=== PATIENT | female | born 1940 | race Caucasian/White ===

== ENCOUNTER 2019-09-11 13:14 | Emergency (ER) | payer MEDICARE, BC, SELFPAY ==
--- NOTE | 2019-09-11 13:24 | ED.URI ---
HPI - URI/Sore Throat General Chief Complaint: Upper Respiratory Infection Stated Complaint: Cough/Headache Time Seen by Provider: 09/11/19 13:39 Source: patient and RN notes reviewed Mode of arrival: ambulatory Limitations: no limitations History of Present Illness HPI Narrative: 79-year-old female with history of aortic stenosis presents with concern for cough, body aches fatigue, headache. Reports her daughter was diagnosed with influenza A several days ago. MD elicited complaint: cough Related Data Home Medications Medication Instructions Recorded Confirmed Orencia 09/11/19 amitriptyline 50 mg PO HS 09/11/19 09/11/19 atorvastatin 20 mg PO HS 09/11/19 09/11/19 biotin mcg PO 09/11/19 calcium carbonate-vitamin D3 1 cap PO BID 09/11/19 09/11/19 [Calcium 600 with Vitamin D3] celecoxib [Celebrex] 400 mg PO DAILY 09/11/19 09/11/19 coenzyme Q10 [Co Q-10] 400 mg PO DAILY 09/11/19 09/11/19 cyclosporine [Restasis] 1 drp OPHTHALMIC (EYE) Q12H 09/11/19 09/11/19 fexofenadine-pseudoephedrine 1 tablet PO QAM 09/11/19 09/11/19 [Bettina-D 24 Hour] folic acid 2 mg PO DAILY 09/11/19 09/11/19 gabapentin [Neurontin] 900 mg PO TID 09/11/19 09/11/19 levocarnitine [L-Carnitine] 500 mg PO ONCE 09/11/19 09/11/19 magnesium 09/11/19 methotrexate sodium 15 mg PO WEEKLY 09/11/19 09/11/19 metoprolol succinate 25 mg PO BID 09/11/19 09/11/19 omega 2-xcw-emt-fish oil [Fish Oil] 1 cap PO DAILY 09/11/19 09/11/19 vit C,Z-Mi-dmgnl-lutein-zeaxan 1 tablet PO BID 09/11/19 09/11/19 [PreserVision AREDS-2] Allergies Allergy/AdvReac Type Severity Reaction Status Date / Time poison curry extract Allergy Unknown Unknown Unverified 09/11/19 13:41 hydrocodone AdvReac Severe Other Verified 09/11/19 13:41 tramadol AdvReac Unknown Itching Verified 09/11/19 13:41 Review of Systems Review of Systems: Narrative: CONSTITUTIONAL: Denies malaise, chills, sweats, or fever. EYES: Denies visual changes, redness, or discharge. ENT: Reports rhinorrhea, congestion, sinus pain, otalgia and sore throat. CARDIOVASCULAR: Denies chest pain, palpitations, or edema. RESPIRATORY: Reports cough. Denies dyspnea. GASTROINTESTINAL: Denies abdominal pain, nausea, vomiting, diarrhea SKIN: Denies rash or itching. MUSCULOSKELETAL: Denies myalgia. NEUROLOGIC: Denies headache. All systems reviewed & are unremarkable except as noted in HPI and below PMFSH Comments At time of signature, agree with nursing past medical, surgical, social and family history. There is no relevant family history pertinent to the presenting complaint Exam Narrative: Exam Narrative: GENERAL: Well-appearing, well-nourished, and in no acute distress. HEAD: Normocephalic EYES: PERRLA, conjunctivae clear ENT: Nares clear, turbinates erythematous, clear discharge. Mucous membranes moist. TM pearly cohen with dull light reflex bilaterally; no tragal tenderness. Oropharynx not erythematous without lesions. Tonsils not enlarged and without exudate, no drooling, no hoarseness, no trismus. NECK: Supple. No lymphadenopathy CHEST: Clear to auscultation, breath sounds equal. No wheezing, rhonchi, rales, or stridor. No respiratory distress, speaks in full sentences. HEART: Regular rate and rhythm. No murmur heard. Normal peripheral pulses. SKIN: Warm, dry, no rash. NEURO: Alert and oriented x3. PSYCH: Normal mood and affect Course Course Emergency Course: Patient is aware of diagnosis, understands and agrees to treatment plan. Anticipatory guidance given. Patient agrees to follow-up as directed and is aware of reasons to seek care at the emergency department. Portions of this record may have been created with voice recognition software Vital Signs Vital signs: Vital Signs Temperature 98.8 F 09/11/19 13:33 Pulse Rate 69 09/11/19 13:33 Respiratory Rate 16 09/11/19 13:33 Blood Pressure 104/77 09/11/19 13:33 Pulse Oximetry 99 09/11/19 13:33 Temperature 98.8 F 09/11/19 13:33 Pulse Rate 69 09/11
[2019-09-11 13:33] VITALS: BP 104/77; PULSE 69; RESP 16; TEMP 37.1; O2SAT 99
== END 2019-09-11 13:57 | disposition home or self-care (01) ==
PROVIDERS: Emergency Provider Nurse Practitioner
DX: Z20.828 Contact with and (suspected) exposure to other viral communicable diseases (principal); R05 Cough
CPT/HCPCS: 87804; 99213; G0463

== ENCOUNTER 2021-11-16 13:09 | Outpatient (CLI) | payer MEDICARE, BC, SELFPAY ==
--- NOTE | 2021-11-16 13:26 | ECG_ITS ---
Measurements Intervals [place] Rate: 75 P: 45 SC: 157 QRS: -6 QRSD: 101 T: 64 QT: 390 QTc: 436 Interpretive Statements SINUS RHYTHM BORDERLINE LEFTWARD AXIS NO PREVIOUS ECG AVAILABLE FOR COMPARISON Electronically Signed On 11-16-2021 15:04:03 CDT by Nick Quijano M.D.
== END 2021-11-16 13:10 | disposition home or self-care (01) ==
PROVIDERS: Visit Provider Podiatrist Foot & Ankle Surgery
DX: R03.0 Elevated blood-pressure reading, without diagnosis of hypertension (principal)
CPT/HCPCS: 93005

== ENCOUNTER 2022-03-06 17:35 | Emergency (ER) | payer MEDICARE, BC, SELFPAY ==
--- NOTE | ~2022-03-06 | XR_ITS ---
EXAM: [id number] DATE: 03/06/2022 18:16 HISTORY: FALL, WITH BRUISING TO RT SIDE LOWER RIB . COMPARISON: None available. FINDINGS: Valve replacement. Aortic arch calcification and ectasia. Senescent changes in the lungs. Normal mineralization. Mildly displaced fractures of the right lateral/posterolateral seventh through ninth ribs. Nondisplaced mildly angulated fractures of the anterior fourth and fifth ribs. No lytic or blastic lesion. Joint spaces are maintained. No erosion or periosteal change. Soft tissues within normal limits. IMPRESSION: Multiple right rib fractures, described above. Reviewed, dictated and finalized at location K.
[2022-03-06 17:45] VITALS: BP 130/59; PULSE 77; RESP 16; TEMP 36.7; O2SAT 100
--- NOTE | 2022-03-06 18:25 | ED.GENADULT ---
HPI - General Adult General Chief complaint: Back Pain/Injury Stated complaint: Back Pain Time Seen by Provider: 03/06/22 18:16 Source: patient Mode of arrival: ambulatory Limitations: no limitations History of Present Illness HPI narrative: Patient presents today complaining of right lateral and posterior rib pain after she fell in her shower around 1500 this afternoon striking her back and lateral ribs on a shower seat. She currently rates her pain 5/10, which increases with movement. She took an Aleve without relief. Denies shortness of breath. Related Data Home Medications Medication Instructions Recorded Confirmed amitriptyline 50 mg tablet 50 mg PO HS 09/11/19 09/11/19 atorvastatin 20 mg tablet 20 mg PO HS 09/11/19 09/11/19 biotin 10,000 mcg capsule mcg PO 09/11/19 calcium carbonate 600 mg-vitamin 1 cap PO BID 09/11/19 09/11/19 D3 12.5 mcg (500 unit) capsule (Calcium 600 with Vitamin D3) celecoxib 200 mg capsule (Celebrex) 400 mg PO DAILY 09/11/19 09/11/19 coenzyme Q10 400 mg capsule (Co 400 mg PO DAILY 09/11/19 09/11/19 Q-10) cyclosporine 0.05 % eye drops in a 1 drp ophthalmic (eye) Q12H 09/11/19 09/11/19 dropperette (Restasis) fexofenadine-pseudoephedrine ER 1 tablet PO QAM 09/11/19 09/11/19 180 mg-240 mg tablet,ext.release 24 hr (Bettina-D 24 Hour) folic acid 1 mg tablet 2 mg PO DAILY 09/11/19 09/11/19 gabapentin 300 mg capsule 900 mg PO TID 09/11/19 09/11/19 (Neurontin) levocarnitine 500 mg tablet 500 mg PO ONCE 09/11/19 09/11/19 (L-Carnitine) methotrexate sodium 2.5 mg tablet 15 mg PO WEEKLY 09/11/19 09/11/19 metoprolol succinate 25 mg 25 mg PO BID 09/11/19 09/11/19 tablet,extended release 24 hr omega 9-omg-tbb-fish oil 1,000 mg 1 cap PO DAILY 09/11/19 09/11/19 (120 mg-180 mg) capsule (Fish Oil) vit C 250 mg-vit E 90 mg-zinc 40 1 tablet PO BID 09/11/19 09/11/19 mg-copper 1 ax-giuqdg-rvcjnl capsule (PreserVision AREDS-2) Allergies Allergy/AdvReac Type Severity Reaction Status Date / Time poison curry extract Allergy Unknown Unknown Verified 03/06/22 18:41 codeine Allergy Unknown Verified 03/06/22 18:41 hydrocodone AdvReac Severe Other Verified 03/06/22 18:41 tramadol AdvReac Unknown Itching Verified 03/06/22 18:41 Review of Systems Review of Systems: CONSTITUTIONAL: Denies body aches, fever, chills, or sweats. EYES: Denies visual changes, redness, or discharge. ENT: Denies rhinorrhea, congestion, sore throat, or otalgia. CARDIOVASCULAR: Denies chest pain, palpitations, or edema. RESPIRATORY: Denies cough or dyspnea.+Right lateral and posterior rib pain GASTROINTESTINAL: Denies abdominal pain, nausea, vomiting, or diarrhea. GENITOURINARY: Denies dysuria or hematuria. SKIN: Denies rash, itching, or wounds. MUSCULOSKELETAL: Denies back pain, joint pain, or myalgia. NEUROLOGIC: Denies headache, numbness, tingling, or weakness. PSYCH: Denies depression or anxiety. [facility] Social History Social History Gender identity (if verbalized by the patient): Female Comments At time of signature, I have reviewed and agree with nursing past medical, surgical, social and family history unless otherwise noted. Please see nursing chart for further information. There is no relevant family history pertinent to the presenting complaint Exam Narrative: GENERAL: Well-appearing, well-nourished, and in no acute distress. HEAD: Normocephalic, atraumatic. EYES: EOMI. No redness or drainage. Conjunctivae normal. ENT: Mucous membranes pink and moist. NECK: Normal AROM. CHEST: No respiratory distress. Clear to auscultation.Right lateral and posterior rib tenderness. Ecchymosis to the mid posterior ribs. No crepitus or deformity noted.No edema noted. HEART: Regular rate and rhythm. No murmur appreciated. Normal peripheral pulses. EXTREMITIES: Normal range of motion. No edema. SKIN: Warm, dry, no rash. Capillary refill normal. Norm
== END 2022-03-06 19:21 | disposition home or self-care (01) ==
PROVIDERS: Emergency Provider Nurse Practitioner
DX: S22.41XA Multiple fractures of ribs, right side, initial encounter for closed fracture (principal); W18.2XXA Fall in (into) shower or empty bathtub, initial encounter; I10 Essential (primary) hypertension; M06.9 Rheumatoid arthritis, unspecified; Z95.2 Presence of prosthetic heart valve
CPT/HCPCS: 71101; 99213; G0463

== ENCOUNTER 2023-06-21 12:05 | Outpatient (CLI) | payer MEDICARE, BC, SELFPAY ==
--- NOTE | ~2023-06-21 | XR_ITS ---
EXAM: XR hand RT min 3V DATE: 06/21/2023 12:26 HISTORY: RIGHT HAND PAIN;RA INVOLVING MULTIPLE SITES . COMPARISON: None available. FINDINGS: Decreased mineralization. No fracture or dislocation. No lytic or blastic lesion. Severe e rosive arthritic change in the second and fifth DIP joints. Polyarticular osteoarthritis throughout t he remaining hand and wrist, severe at the trapeziometacarpal joint, multiple intracarpal joints, and the radiocarpal joint. No subluxations. No erosions.. No erosion or periosteal change. Soft tissues within normal limits. 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 Reviewed, dictated and finalized at location K. 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
== END 2023-06-21 12:06 | disposition home or self-care (01) ==
DX: M19.041 Primary osteoarthritis, right hand (principal)
CPT/HCPCS: 73130

== ENCOUNTER 2023-12-06 17:03 | Emergency (ER) | payer MEDICARE, BC, SELFPAY ==
[2023-12-06 17:19] VITALS: BP 113/58; PULSE 75; RESP 14; TEMP 37.4; O2SAT 98
--- NOTE | 2023-12-06 17:23 | ED.SKABFB ---
HPI - Skin/Abscess/Foreign Bdy General Chief complaint: Skin/Abscess/Foreign Body Stated complaint: Insect Bite Time Seen by Provider: 12/06/23 17:23 Source: patient Mode of arrival: ambulatory Limitations: no limitations History of Present Illness HPI narrative: Patient is a 83-year-old female who presents with wound to back of left leg. Patient states she 1st noticed it a month ago but the last 2 days has become more tender and hard. Denies any fever, chills, nausea, vomiting, diarrhea. Related Data Home Medications Medication Instructions Recorded Confirmed atorvastatin 20 mg tablet 20 mg PO HS 09/11/19 03/06/22 biotin 10,000 mcg capsule 10,000 mcg PO DAILY 09/11/19 03/06/22 calcium carbonate 600 mg-vitamin 1 cap PO BID 09/11/19 03/06/22 D3 12.5 mcg (500 unit) capsule (Calcium 600 with Vitamin D3) coenzyme Q10 400 mg capsule (Co 400 mg PO DAILY 09/11/19 03/06/22 Q-10) cyclosporine 0.05 % eye drops in a 1 drp ophthalmic (eye) Q12H 09/11/19 03/06/22 dropperette (Restasis) fexofenadine-pseudoephedrine ER 1 tablet PO QAM 09/11/19 03/06/22 180 mg-240 mg tablet,ext.release 24 hr (Bettina-D 24 Hour) folic acid 1 mg tablet 2 mg PO DAILY 09/11/19 03/06/22 gabapentin 300 mg capsule 900 mg PO TID 09/11/19 03/06/22 (Neurontin) levocarnitine 500 mg tablet 500 mg PO ONCE 09/11/19 03/06/22 (L-Carnitine) metoprolol succinate 25 mg 25 mg PO BID 09/11/19 03/06/22 tablet,extended release 24 hr omega 1-jut-opc-fish oil 1,000 mg 1 cap PO DAILY 09/11/19 03/06/22 (120 mg-180 mg) capsule (Fish Oil) vit C 250 mg-vit E 90 mg-zinc 40 1 tablet PO BID 09/11/19 03/06/22 mg-copper 1 dg-djdrfn-nmjnfv capsule (PreserVision AREDS-2) methotrexate sodium 25 mg/mL mg 05/07/24 05/07/24 injection solution Allergies Allergy/AdvReac Type Severity Reaction Status Date / Time poison curry extract Allergy Unknown Unknown Verified 12/06/23 17:29 codeine Allergy Unknown Verified 12/06/23 17:29 hydrocodone AdvReac Severe Other Verified 12/06/23 17:29 tramadol AdvReac Unknown Itching Verified 12/06/23 17:29 Review of Systems Review of Systems: All systems reviewed & are unremarkable except as noted in HPI and below Constitutional: Constitutional: Denies body ache(s), Denies chills, Denies fatigue, Denies fever(s), Denies headache(s), Denies malaise and Denies weakness Eyes: Eyes: Denies blurry vision, Denies irritation and Denies loss of vision ENT: Denies otalgia, Denies headache(s), Denies nasal discharge, Denies sinus pain and Denies sore throat Cardiovascular: Cardiovascular: Denies chest pain, Denies irregular heart rhythm and Denies dyspnea Respiratory: Respiratory: Denies dyspnea Gastrointestinal: Gastrointestinal: Denies abdominal pain, Denies melena, Denies hematochezia, Denies diarrhea, Denies nausea and Denies vomiting Musculoskeletal: Musculoskeletal: Denies back pain, Denies myalgias and Denies arthralgias Integumentary/Breasts: Skin/Breast: Denies pruritus, Denies rash and Reports wounds Neurologic: Denies headache(s), Denies loss of vision and Denies weakness Psychiatric: Psychiatric: Reports no additional psychiatric complaints Endocrine: Endocrine: Denies fatigue PMFSH Social History Social History Gender identity (if verbalized by the patient): Female Comments At time of signature, agree with nursing past medical, surgical, social and family history. There is no relevant family history pertinent to the presenting complaint. Exam Const: General: cooperative, healthy appearing, comfortable, no acute distress and well nourished Nutritional Appearance: well nourished Orientation/consciousness: patient oriented x3 Limitations: no limitations HENMT: Head: normal to inspection, normocephalic and atraumatic Ears: hearing grossly normal bilaterally and external ears normal Face/Nose/Sinus: Normal external nose present, normal facial exam and f
== END 2023-12-06 18:02 | disposition home or self-care (01) ==
PROVIDERS: Emergency Provider Nurse Practitioner Family
DX: L03.116 Cellulitis of left lower limb (principal)
CPT/HCPCS: 99213; G0463

== ENCOUNTER 2024-06-20 09:04 | Emergency (ER) | payer MEDICARE, BC, SELFPAY ==
--- NOTE | ~2024-06-20 | XR_ITS ---
XR chest 2V Ordering provider: Artis Villa MD History: 83 years Female with . near syncope, pt states she has bodyaches w/ no fever . Comparison: None. FINDINGS: MEDIASTINUM: The cardiac silhouette is not enlarged. Postoperative changes in the mediastinum with de vice projected over the lower mediastinum. LUNGS: No infiltrates, effusions or pneumothorax. Emphysematous changes of the lungs. OTHER: No free air under the diaphragm. Healing fractures seventh, eighth and ninth ribs. IMPRESSION: No acute cardiopulmonary pathology. Healing fractures in the right hemithorax. Reviewed, dictated and finalized at location A. INER
--- NOTE | 2024-06-20 09:25 | ECG_ITS ---
Test Date: 2024-06-20 09:24:53 Measurements Intervals [place] Rate: 75 P: 54 KS: 161 QRS: -12 QRSD: 101 T: 60 QT: 413 QTc: 464 Interpretive Statements SINUS RHYTHM INCOMPLETE RIGHT BUNDLE BRANCH BLOCK BASELINE ARTIFACT- I, II, III, AVR, AVL, AVF, V1-V2 BORDERLINE ECG No previous ECG available for comparison Electronically Signed On 06-20-2024 09:48:16 [employer] by Mio Yusuf D.O.
[2024-06-20 09:55] LABS: Alanine Aminotransferase 23 U/L (6-35); Albumin Level 4.8 g/dL (3.5-5.1); Alkaline Phosphatase 98 U/L (38-126); Anion Gap 5 mmol/L (4-12); Aspartate Amino Transferase 36 U/L (14-36); Basophils Percent Auto 0.4 % (0.2-1.2); Bilirubin,Total 1.1 mg/dL (0.2-1.3); Blood Urea Nitrogen 23 mg/dL (7-17); Calcium 9.6 mg/dL (8.4-10.2); Carbon Dioxide 32 mmol/L (22-30); Chloride 101 mmol/L (98-107); Eosinophils Percent Auto 0.3 % (0-4.4); Estimated Glomerular Filt Rate > 60; Glucose 121 mg/dL (65-110); Hematocrit 41.3 % (37.0-47.0); Hemoglobin 13.4 g/dL (12.0-15.0); Immature Granulocyte Absolute 0.04 K/mm3 (0.00-0.031); Immature Granulocyte Percent A 0.4 % (0-0.5); Lymphocytes Absolute Auto 0.63 K/mm3 (0.9-3.2); Lymphocytes Percent Auto 5.7 % (18.3-44.2); Mean Corpuscular HGB Conc 32.4 g/dl (32-36); Mean Corpuscular Hemoglobin 30.1 pg (26-34); Mean Corpuscular Volume 92.8 fl (80-100); Monocytes Absolute Auto 0.5 K/mm3 (0.1-0.6); Monocytes Percent Auto 4.6 % (2.6-8.5); Neutrophils Absolute Auto 9.8 K/mm3 (1.3-6.7); Neutrophils Percent Auto 88.6 % (45.5-73.1); Platelet Count Result 198 k/mm3 (150-375); Potassium 4.1 mmol/L (3.4-5.0); Red Blood Count 4.45 M/mm3 (4.2-5.4); Red Cell Distribution Width 14.4 % (11.5-14.5); Sodium 138 mmol/L (137-145)
[2024-06-20 12:57] VITALS: BP 139/75; PULSE 85; RESP 20; TEMP 37.1; O2SAT 100
[2024-06-20 13:01] VITALS: BP 136/61; PULSE 80; RESP 16; O2SAT 100
--- NOTE | 2024-06-20 13:21 | ED.GENADULT ---
HPI - General Adult General Chief complaint: Unspecified Stated complaint: body aches Time Seen by Provider: 06/20/24 12:59 History of Present Illness HPI narrative: 83-year-old female presents emergency department for evaluation for generalized body ache. Patient states that last night she had onset of the pain and neck pain along with generalized fatigue. Patient states she did take Tylenol and this helped and allowed her to get some sleep. Patient woke up this morning and was still having some joint pain. Patient did take a shower and felt worsening lightheaded dizziness. Patient did not have a syncopal episode and did not have any fall or injury. Patient states that she was able to get a shower and did call a friend and the friend encouraged her to be evaluated in the emergency department. At time of evaluation patient appears to be in no distress. Patient is well-appearing. Related Data Home Medications Medication Instructions Recorded Confirmed atorvastatin 20 mg tablet 20 mg PO HS 09/11/19 03/06/22 biotin 10,000 mcg capsule 10,000 mcg PO DAILY 09/11/19 03/06/22 calcium 600 mg (as 1 cap PO BID 09/11/19 03/06/22 carbonate)-vitamin D3 12.5 mcg (500 unit) capsule (Calcium with Vit D3) coenzyme Q10 400 mg capsule (Co 400 mg PO DAILY 09/11/19 03/06/22 Q-10) cyclosporine 0.05 % eye drops in a 1 drp ophthalmic (eye) Q12H 09/11/19 03/06/22 dropperette (Restasis) fexofenadine-pseudoephedrine ER 1 tablet PO QAM 09/11/19 03/06/22 180 mg-240 mg tablet,ext.release 24 hr (Bettina-D 24 Hour) folic acid 1 mg tablet 2 mg PO DAILY 09/11/19 03/06/22 gabapentin 300 mg capsule 900 mg PO TID 09/11/19 03/06/22 (Neurontin) levocarnitine 500 mg tablet 500 mg PO ONCE 09/11/19 03/06/22 (L-Carnitine) metoprolol succinate 25 mg 25 mg PO BID 09/11/19 03/06/22 tablet,extended release 24 hr omega 1-jsj-cpz-fish oil 1,000 mg 1 cap PO DAILY 09/11/19 03/06/22 (120 mg-180 mg) capsule (Fish Oil) vit C 250 mg-vit E 90 mg-zinc 40 1 tablet PO BID 09/11/19 03/06/22 mg-copper 1 jc-jcvbmk-pkmyyy capsule (PreserVision AREDS-2) methotrexate sodium 25 mg/mL mg 12/06/23 12/06/23 injection solution Allergies Allergy/AdvReac Type Severity Reaction Status Date / Time poison curry extract Allergy Unknown Unknown Verified 12/06/23 17:29 codeine Allergy Unknown Verified 12/06/23 17:29 hydrocodone AdvReac Severe Other Verified 12/06/23 17:29 tramadol AdvReac Unknown Itching Verified 12/06/23 17:29 Review of Systems Review of Systems: All systems reviewed & are unremarkable except as noted in HPI and below PMFSH Social History Social History Gender identity (if verbalized by the patient): Female Exam Narrative: APPEARANCE: Well appearing, no pain, no distress, well-nourished. HEAD: normocephalic, atraumatic. EYES: PERRLA/EOMI, conjunctivae clear. NOSE: Normal no drainage EARS:TMS clear with good light reflex. THROAT: Pharynx clear, no exudate. NECK: Supple. No adenopathy, no masses. RESPIRATORY: Airway patent, respirations nonlabored. Clear to auscultation bilaterally, no rales, rhonchi, wheezing. CARDIOVASCULAR: Regular rate and rhythm without murmurs rubs or gallops. ABDOMINAL: Soft, nontender, nondistended, normal bowel sounds MUSCULOSKELETAL: Moves all extremities. Strength/ROM intact, No edema, No calf tenderness. NEURO: Alert. Cranial nerves II through XII intact. Good gait. Good coordination SKIN: Warm, dry. Normal Color Course Vital Signs Vital signs: Vital Signs Temperature 98.7 F 06/20/24 12:57 Pulse Rate 85 06/20/24 12:57 Respiratory Rate 20 06/20/24 12:57 Blood Pressure 139/75 06/20/24 12:57 Pulse Oximetry 100 06/20/24 12:57 Oxygen Delivery Room Air 06/20/24 12:57 Temperature 98.7 F 06/20/24 12:57 Pulse Rate 83 06/20/24 15:02 Respiratory Rate 20 06/20/24 15:02 Blood Pressure 122/62 06/20/24 15:02 Pulse Oximetry 97 06/20/24 15:02 Oxygen Delivery Room Air 06/20/24 12:57 Medical Decision Making MDM Narrative Medical decision making narrative: 83-year-old female presented to the emergency department for evaluation for increased generalized weakness. Patient is afebrile but does have a leukocytosis of 11 and a stable hemoglobin of 13.4. No acute abnormalities on the CMP patient was negative for influenza RSV and for COVID. Chest x-ray shows no acute cardiopulmonary abnormality. Patient describes body aches and generalized fatigue do suspect viral etiology versus UTI. Patient denies any urinary symptoms and did not want to wait to have her UA collected. Patient request to be discharged to home. Patient was encouraged of close follow-up with her primary care physician. Differential Diagnosis Differential Diagnosis: UTI, COVID, influenza, RSV, viral etiology, pneumonia Vital Signs Vital Signs: Vital Signs Temperature 98.7 F 06/20/24 12:57 Pulse Rate 85 06/20/24 12:57 Respiratory Rate 20 06/20/24 12:57 Blood Pressure 139/75 06/20/24 12:57 Pulse Oximetry 100 06/20/24 12:57 Oxygen Delivery Room Air 06/20/24 12:57 Temperature 98.7 F 06/20/24 12:57 Pulse Rate 83 06/20/24 15:02 Respiratory Rate 20 06/20/24 15:02 Blood Pressure 122/62 06/20/24 15:02 Pulse Oximetry 97 06/20/24 15:02 Oxygen Delivery Room Air 06/20/24 12:57 Lab Data Lab results reviewed: Yes I reviewed the patient's lab results. 06/20/24 09:35 06/20/24 09:35 Labs: Lab Results 06/20/24 06/20/24 Range/Units 09:35 13:11 WBC 11.0 H (4.5-10.0) K/mm3 RBC 4.45 (4.2-5.4) M/mm3 Hgb 13.4 (12.0-15.0) g/dL Hct 41.3 (37.0-47.0) % MCV 92.8 (80-100) fl MCH 30.1 (26-34) pg MCHC 32.4 (32-36) g/dl RDW 14.4 (11.5-14.5) % Plt Count 198 (150-375) k/mm3 MPV 10.0 (7.4-10.4) fl Immature Gran % (Auto) 0.4 (0-0.5) % Neut % (Auto) 88.6 H (45.5-73.1) % Lymph % (Auto) 5.7 L (18.3-44.2) % [place] % (Auto) 4.6 (2.6-8.5) % Eos % (Auto) 0.3 (0-4.4) % Baso % (Auto) 0.4 (0.2-1.2) % Lymph # (Auto) 0.63 L (0.9-3.2) K/mm3 Bulloch # (Auto) 0.5 (0.1-0.6) K/mm3 Eos # (Auto) 0.0 (0-0.3) K/mm3 Baso # (Auto) 0.0 (0.0-0.1) K/mm3 Abs Immat Gran (auto) 0.04 H (0.00-0.031) K/mm3 Absolute Neuts (auto) 9.8 H (1.3-6.7) K/mm3 Absolute Nucleated RBC 0.000 (0.0-0.012) K/mm3 Nucleated RBC % 0.0 (0.0-0.2) % Sodium 138 (137-145) mmol/L Potassium 4.1 (3.4-5.0) mmol/L Chloride 101 (98-107) mmol/L Carbon Dioxide 32 H (22-30) mmol/L Anion Gap 5 (4-12) mmol/L BUN 23 H (7-17) mg/dL Creatinine 0.80 (0.7-1.0) mg/dL Estim Creat Clear Calc Not Reportable Estimated GFR > 60 (59 - ) Glucose 121 H (65-110) mg/dL Calcium 9.6 (8.4-10.2) mg/dL Total Bilirubin 1.1 (0.2-1.3) mg/dL AST 36 (14-36) U/L ALT 23 (6-35) U/L Alkaline Phosphatase 98 (38-126) U/L Total Protein 8.0 (6.3-8.2) g/dL Albumin 4.8 (3.5-5.1) g/dL Influenza A (RT-PCR) Negative (Negative) Influenza B (RT-PCR) Negative (Negative) RSV (RT-PCR) Negative (Negative) SARS-CoV-2 RNA (RT-PCR) Negative (Negative) Imaging Data Radiologist's impression: Impressions Chest X-Ray 06/20/24 10:25 IMPRESSION: No acute cardiopulmonary pathology. Healing fractures in the right hemithorax. ECG Data EKG #1: EKG Interpretation: normal rate, sinus rhythm, non-specific ST changes, normal QRS, RBBB and NL axis Discharge Plan Discharge Clinical Impression: Generalized weakness, Body aches Patient Disposition: Home, Self-Care Condition: Stable Instructions: Antibiotic Form Additional Instructions: You preferred to not wait to do a urinary analysis. A urinary tract infection was not ruled out. Have close follow-up with your primary care physician Prescriptions: No Action atorvastatin 20 mg Tablet 20 mg PO HS metoprolol succinate 25 mg Tablet Extended Release 24 Hr 25 mg PO BID gabapentin [Neurontin] 300 mg Capsule 900 mg PO TID folic acid 1 mg Tablet 2 mg PO DAILY calcium carbonate-vitamin D3 [Calcium 600 with Vitamin D3] 600 mg(1,500mg) -500 unit Capsule 1 cap PO BID biotin 10,000 mcg Capsule 10,000 mcg PO DAILY L-Carnitine 500 mg Tablet 500 mg PO ONCE cyclosporine [Restasis] 0.05 % Dropperette 1 drp OPHTHALMIC (EYE) Q12H fexofenadine-pseudoephedrine [Bettina-D 24 Hour] 180-240 mg Tablet Extended Release 24 Hr 1 tablet PO QAM coenzyme Q10 [Co Q-10] 400 mg Capsule 400 mg PO DAILY PreserVision AREDS-2 [id number] dt-bocl-zq-mg Capsule 1 tablet PO BID omega 8-ikz-bsi-fish oil [Fish Oil] 1,000 mg (120 mg-180 mg) Capsule 1 cap PO DAILY methotrexate sodium 25 mg/mL solution cephalexin 500 mg capsule 500 mg PO BID 7 Days Qty: 14 0RF mupirocin 2 % ointment 1 applic topical BID Qty: 15 0RF Follow-up/Referrals: PHYSICIAN NOT ON STAFF,NONSTAFF [Non-Staff] -
[2024-06-20 14:04] LABS: Influenza A QL RT-PCR Negative (Negative); Influenza B QL RT-PCR Negative (Negative); RSV RNA, RT-PCR Negative (Negative); SARS-CoV-2 RNA PCR Negative (Negative)
[2024-06-20 14:23] VITALS: BP 125/60; PULSE 80; RESP 16; O2SAT 98
[2024-06-20] MEDS: KETOROLAC 30 MG/ML VIAL (*BKC) IM (14:28)
[2024-06-20] MEDS: ACETAMINOPHEN 325 MG TABLET 650 MG PO (14:28)
[2024-06-20 15:02] VITALS: BP 122/62; PULSE 83; RESP 20; O2SAT 97
== END 2024-06-20 19:45 | disposition home or self-care (01) ==
PROVIDERS: Emergency Medicine; Emergency Provider Emergency Medicine
DX: R53.1 Weakness (principal); M79.10 Myalgia, unspecified site; Z20.822 Contact with and (suspected) exposure to COVID-19
CPT/HCPCS: 36415; 71046; 80053; 85025; 87637; 93005; 96372; 99283; A9270; J1885

== ENCOUNTER 2024-07-15 11:36 | Emergency (ER) | payer MEDICARE, BC, SELFPAY ==
[2024-07-15 11:48] VITALS: BP 121/61; PULSE 73; RESP 16; TEMP 36.3; O2SAT 98
--- NOTE | 2024-07-15 11:52 | ED_ITS ---
HPI - Ear Problem General Chief complaint: Ear Stated complaint: left ear issue Time Seen by Provider: 07/15/24 11:53 Source: patient Mode of arrival: ambulatory Limitations: no limitations History of Present Illness HPI Narrative: Cait is a 83-year-old female patient presenting to the clinic today with complaints of possible foreign body in the left ear. She reports she removed her hearing aid last night and the rubber piece was missing. She thinks it may be in her left ear canal. Related Data Home Medications ?Medication ?Instructions ?Recorded ?Confirmed ?Last Taken ?Type atorvastatin 20 mg tablet 20 mg PO HS 09/11/19 07/15/24 Unknown History biotin 10,000 mcg capsule 10,000 mcg PO DAILY 09/11/19 07/15/24 Unknown History calcium 600 mg (as 1 cap PO BID 09/11/19 07/15/24 Unknown History carbonate)-vitamin D3 12.5 mcg (500 unit) capsule (Calcium with Vit D3) coenzyme Q10 400 mg capsule (Co 400 mg PO DAILY 09/11/19 07/15/24 Unknown History Q-10) cyclosporine 0.05 % eye drops in a 1 drp ophthalmic (eye) Q12H 09/11/19 07/15/24 Unknown History dropperette (Restasis) fexofenadine-pseudoephedrine ER 1 tablet PO QAM 09/11/19 07/15/24 Unknown History 180 mg-240 mg tablet,ext.release 24 hr (Bettina-D 24 Hour) folic acid 1 mg tablet 2 mg PO DAILY 09/11/19 07/15/24 Unknown History gabapentin 300 mg capsule 900 mg PO TID 09/11/19 07/15/24 Unknown History (Neurontin) levocarnitine 500 mg tablet 500 mg PO ONCE 09/11/19 07/15/24 Unknown History (L-Carnitine) metoprolol succinate 25 mg 25 mg PO BID 09/11/19 07/15/24 Unknown History tablet,extended release 24 hr omega 2-gof-vny-fish oil 1,000 mg 1 cap PO DAILY 09/11/19 07/15/24 Unknown History (120 mg-180 mg) capsule (Fish Oil) vit C 250 mg-vit E 90 mg-zinc 40 1 tablet PO BID 09/11/19 07/15/24 Unknown History mg-copper 1 [id number] capsule (PreserVision AREDS-2) methotrexate sodium 25 mg/mL 25 mg subcut WEEKLY 12/06/23 07/15/24 Unknown History injection solution metoprolol succinate 50 mg 50 mg PO Q12H 07/15/24 07/15/24 Unknown History tablet,extended release 24 hr vibegron 75 mg tablet (Gemtesa) 75 mg PO DAILY 07/15/24 07/15/24 Unknown History Allergies Allergy/AdvReac Type Severity Reaction Status Date / Time poison curry extract Allergy Unknown Unknown Verified 07/15/24 11:46 codeine Allergy Unknown Verified 07/15/24 11:46 hydrocodone AdvReac Severe Other Verified 07/15/24 11:46 tramadol AdvReac Unknown Itching Verified 07/15/24 11:46 Review of Systems Review of Systems: Pertinent positives per HPI. Patient denies any fever, chills, rash, headache, visual changes, dizziness, cough, runny nose, sore throat, shortness of breath, chest pain, palpitations, nausea, vomiting, diarrhea, constipation, abdominal pain, or any urinary issues. PMFSH Social History Social History Gender identity (if verbalized by the patient): Female Comments At the time of my signature, I reviewed and agree with the nursing past medical, surgical, social, and family history. There is no relevant family history pertinent to the patient complaint. Exam Narrative: General: Well-developed, well nourished, in no apparent distress Head: Normocephalic, atraumatic Eyes: Pupils equally round and reactive to light bilaterally, EOM intact, sclera and conjunctive clear, no discharge, lids normal Ears: TMs intact and clear, ear canals clear, no drainage, grossly hearing normal. Nose: Nares patent, no discharge, no inflammation, no sinus tenderness. Mouth: Oropharynx without lesions or masses, good dentition, MMM. Neck: Supple, trachea midline, no enlargement of anterior or posterior cervical nodes, no thyroid masses or goiter palpable. Cardio: Regular rate and rhythm, s1 and s2 normal, no murmur appreciated. Resp: Clear to auscultation bilaterally anteriorly and posteriorly, no rhonchi, rales, wheezing or rubs Course Course Emergency Course: Portions of this record may have been created with voice recognition software. Level of Care: Express Care Visit Vital Signs Vital signs: Vital Signs Temperature 36.3 C L 07/15/24 11:48 Pulse Rate 73 07/15/24 11:48 Respiratory Rate 16 07/15/24 11:48 Blood Pressure 121/61 07/15/24 11:48 Pulse Oximetry 98 07/15/24 11:48 Oxygen Delivery Room Air 07/15/24 11:48 Temperature 36.3 C L 07/15/24 11:48 Pulse Rate 73 07/15/24 11:48 Respiratory Rate 16 07/15/24 11:48 Blood Pressure 121/61 07/15/24 11:48 Pulse Oximetry 98 07/15/24 11:48 Oxygen Delivery Room Air 07/15/24 11:48 Vital signs reviewed Medical Decision Making MDM Narrative Medical decision making narrative: At the time of visit patient is resting comfortably on the exam table. Patient appears to be nontoxic. Plan: No sign of foreign body in the left ear upon exam. Supportive measures were discussed with the patient and they voiced understanding discharge instru ctions and agrees to treatment plan. Return precautions reviewed Differential Diagnosis Differential Diagnosis: Foreign body in the left ear, normal exam Vital Signs Vital Signs: Vital Signs Temperature 36.3 C L 07/15/24 11:48 Pulse Rate 73 07/15/24 11:48 Respiratory Rate 16 07/15/24 11:48 Blood Pressure 121/61 07/15/24 11:48 Pulse Oximetry 98 07/15/24 11:48 Oxygen Delivery Room Air 07/15/24 11:48 Temperature 36.3 C L 07/15/24 11:48 Pulse Rate 73 07/15/24 11:48 Respiratory Rate 16 07/15/24 11:48 Blood Pressure 121/61 07/15/24 11:48 Pulse Oximetry 98 07/15/24 11:48 Oxygen Delivery Room Air 07/15/24 11:48 Discharge Plan Discharge Clinical Impression: Normal ear exam Patient Disposition: Home, Self-Care Condition: Stable Instructions: Antibiotic Form, Normal Exam (ED) Additional Instructions: Normal exam in the clinic today Follow-up as needed Patient Language: Danish Prescriptions: No Action atorvastatin 20 mg Tablet 20 mg PO HS metoprolol succinate 25 mg Tablet Extended Release 24 Hr 25 mg PO BID gabapentin [Neurontin] 300 mg Capsule 900 mg PO TID folic acid 1 mg Tablet 2 mg PO DAILY calcium carbonate-vitamin D3 [Calcium 600 with Vitamin D3] 600 mg(1,500mg) - 500 unit Capsule 1 cap PO BID biotin 10,000 mcg Capsule 10,000 mcg PO DAILY L-Carnitine 500 mg Tablet 500 mg PO ONCE cyclosporine [Restasis] 0.05 % Dropperette 1 drp OPHTHALMIC (EYE) Q12H fexofenadine-pseudoephedrine [Bettina-D 24 Hour] 180-240 mg Tablet Extended Release 24 Hr 1 tablet PO QAM coenzyme Q10 [Co Q-10] 400 mg Capsule 400 mg PO DAILY PreserVision AREDS-2 [id number] [id number]-mg Capsule 1 tablet PO BID omega 0-zaz-omd-fish oil [Fish Oil] 1,000 mg (120 mg-180 mg) Capsule 1 cap PO DAILY methotrexate sodium 25 mg/mL solution 25 mg subcut WEEKLY mupirocin 2 % ointment 1 applic topical BID Qty: 15 0RF Gemtesa 75 mg tablet 75 mg PO DAILY metoprolol succinate 50 mg tablet extended release 24 hr 50 mg PO Q12H Follow-up/Referrals: UNKNOWN,DOCTOR [Primary Care Provider] - Time of Disposition: 11:56 Quality NIHSS Nursing Documentation ED NIHSS nursing documentation: reviewed/agree
== END 2024-07-15 11:59 | disposition home or self-care (01) ==
PROVIDERS: Emergency Provider Nurse Practitioner Family
DX: Z71.1 Person with feared health complaint in whom no diagnosis is made (principal); I10 Essential (primary) hypertension; M19.90 Unspecified osteoarthritis, unspecified site; M06.9 Rheumatoid arthritis, unspecified
CPT/HCPCS: 99211; G0463